=== PATIENT | female | born 1975 | race African-American/Black ===

== ENCOUNTER 2023-04-28 23:28 | Emergency (ER) | payer MEDICAID ==
[~2023-04-28] VITALS: Ht 170.2 cm; Wt 86.0 kg
[2023-04-28 23:36] VITALS: O2SAT 97
[2023-04-28] MEDS ORDERED: ONDANSETRON HCL 4MG/2ML INJ IV STA (23:39)
[2023-04-28] MEDS ORDERED: SODIUM CHLORIDE 0.9% 1,000 ML IV ONE (23:45)
[2023-04-28 23:51] VITALS: TEMP 98.1
[2023-04-29 00:01] LABS: BASOPHILS % 1.2 % (0.0-2.0); EOSINOPHILS % 2.8 % (0.0-5.0); HEMATOCRIT. 24.5 % (36.0-48.0); HEMOGLOBIN. 7.3 g/dL (12.0-16.0); LYMPHOCYTES % 31.3 % (20.0-50.0); MEAN CORPUSCULAR HEMOGLOBIN 19.4 pg (28.0-32.0); MEAN CORPUSCULAR HGB CONC 29.6 g/dL (31.0-37.0); MEAN CORPUSCULAR VOLUME 65.4 fL (81.0-99.0); NEUTROPHILS % 58.7 % (40.0-76.0); PLATELET 571 x1000/uL (130-400); RED BLOOD CELL COUNT 3.75 mill/uL (4.2-5.4)
[2023-04-29 00:13] LABS: CHLORIDE 111 mEq/L (98-107); INDEX HEMOLYSI 1 (1-3); INDEX ICTERIC 1 (1-4); INDEX LIPEMIC 1 (1-3); POTASSIUM 3.1 mEq/L (3.5-5.1); SODIUM 142 mEq/L (136-145)
[2023-04-29 00:14] LABS: ALBUMIN 3.5 g/dL (3.4-5.0); CALCIUM 8.3 mg/dL (8.5-10.1); CARBON DIOXIDE 19 mEq/L (21-32); UREA NITROGEN BLOOD 15 mg/dL (7-21)
[2023-04-29 00:21] LABS: ACETAMINOPHEN 2 ug/mL (10-30); ALANINE AMINOTRANSFERASE 14 IU/L (13-61); ASPARTATE AMINOTRANSFERASE 7 IU/L (15-37); BILIRUBIN TOTAL 0.3 mg/dL (0.1-1.0); ETHANOL BLOOD 104 mg/dL (<10); GLUCOSE 120 mg/dL (70-105); PROTEIN TOTAL 6.8 g/dL (6.0-8.3)
[2023-04-29 00:30] LABS: ADD RBC MORPHOLOGY YES; DIFFERENTIAL COMMENT 1
[2023-04-29 00:57] LABS: HCG SCREEN NEGATIVE
[2023-04-29] MEDS ORDERED: POTASSIUM CHLORIDE 20MEQ/PACKET PO NR (01:15)
[2023-04-29 02:00] LABS: TROPONIN I HIGH SENSITIVITY 16 ng/L (<54)
[2023-04-29 02:15] LABS: CLARITY URINE CLOUDY (CLEAR); COLOR URINE YELLOW (YELLOW); GLUCOSE URINE NEGATIVE (NEGATIVE); KETONES URINE TRACE (NEGATIVE); LEUKOCYTE ESTERASE URINE 1+ (NEGATIVE); NITRITE URINE NEGATIVE (NEGATIVE); OCCULT BLOOD URINE 3+ (NEGATIVE); PH URINE 5.5 (4.5-8.0); PROTEIN URINE TRACE (NEGATIVE)
[2023-04-29 02:18] LABS: BACTERIA URINE 1+; YEAST URINE NONE SEEN
[2023-04-29] MEDS ORDERED: THIA250T3 MT (02:26)
[2023-04-29 02:38] LABS: *AMPHETAMINES SCREEN URINE NEGATIVE (NEGATIVE); *BARBITURATES SCREEN URINE NEGATIVE (NEGATIVE); *BENZODIAZEPINES SCREEN URINE NEGATIVE (NEGATIVE); *COCAINE SCREEN URINE NEGATIVE (NEGATIVE); CANNABINOID URINE SCREEN NEGATIVE (NEGATIVE); ECSTASY MDMA SCREEN URINE NEGATIVE (NEGATIVE); PHENCYCLIDINE URINE SCREEN NEGATIVE (NEGATIVE)
[2023-04-29 02:50] VITALS: BP 120/78; PULSE 92; RESP 13
[2023-04-29 03:22] LABS: OPIATES URINE SCREEN PRESUMTIVE POSITIVE (NEGATIVE)
[2023-04-29 03:37] LABS: SQUAMOUS EPITHELIAL CELL URINE 1+ /lpf (RARE/1+)
[2023-04-29 03:38] LABS: RBC URINE 0-2 /hpf (0-2)
[2023-04-29 05:13] LABS: PLATELET ESTIMATE INCREASED
[2023-04-29 05:16] LABS: HYPOCHROMASIA 1+; MICROCYTOSIS 2+
== END 2023-04-29 02:50 | disposition home or self-care (01) ==
LOC: ER 23:28
DX: F10.129 Alcohol abuse with intoxication, unspecified (principal); I10 Essential (primary) hypertension; D64.9 Anemia, unspecified; Y90.5 Blood alcohol level of 100-119 mg/100 ml
CPT/HCPCS: 80053; 80307; 80329; 80320; 84703; 85025; 84484; 36415; 93005; 99284; 80305; 81003; 96361; 96374; J7030; J2405; G0480

== ENCOUNTER 2023-12-19 16:16 | Emergency (ER) | payer MEDICAID ==
[~2023-12-19] VITALS: Ht 172.7 cm; Wt 82.0 kg
[~2023-12-19 16:16] MED LIST: THIA250T3 MT
[2023-12-19 16:21] VITALS: BP 165/95; PULSE 112; RESP 16; TEMP 98.3; O2SAT 100
== END 2023-12-19 17:35 | disposition left against medical advice (07) ==
LOC: ER 16:28
DX: R55 Syncope and collapse (principal); Z88.0 Allergy status to penicillin; Z88.6 Allergy status to analgesic agent
CPT/HCPCS: 93005; 99283

== ENCOUNTER 2025-01-09 05:55 | Emergency (ER) | payer MEDICAID, OTHER ==
[~2025-01-09] VITALS: Ht 170.2 cm; Wt 100.0 kg
[2025-01-09 05:57] VITALS: TEMP 36.6; O2SAT 98
[2025-01-09] MEDS ORDERED: HYDR-4001 MT (06:55)
[2025-01-09] MEDS ORDERED: KETOROLAC 30MG/ML VIAL IM ONE (07:00)
[2025-01-09] MEDS: HYDROCODONE/ACETAMINOPHEN 5/325MG TABLET PO ONE (07:30)
[2025-01-09 07:41] VITALS: BP 141/92; PULSE 79; RESP 15; O2SAT 100
== END 2025-01-09 07:59 | disposition home or self-care (01) ==
LOC: ER 05:55
DX: G89.29 Other chronic pain (principal); M25.561 Pain in right knee; F41.9 Anxiety disorder, unspecified; F32.A Depression, unspecified; Z88.6 Allergy status to analgesic agent; Z88.0 Allergy status to penicillin
CPT/HCPCS: 73562; 99283

== ENCOUNTER 2025-07-09 11:26 | Inpatient (IN) | payer MEDICAID ==
[~2025-07-09] VITALS: Ht 172.7 cm; Wt 108.9 kg
[~2025-07-09 11:26] MED LIST changes: +HYDR-4001 MT
[2025-07-09 11:31] VITALS: O2SAT 98
[2025-07-09 12:04] LABS: BASOPHILS % 1.1 % (0.0-2.0); EOSINOPHILS % 0.6 % (0.0-5.0); LYMPHOCYTES % 11.1 % (20.0-50.0); MEAN PLATELET VOLUME 6.4 fl (7.4-10.4); MONOCYTES % 5.9 % (2.0-8.0); NEUTROPHILS % 81.3 % (40.0-76.0); PLATELET 931 x1000/uL (130-400); RED BLOOD CELL COUNT 2.44 mill/uL (4.2-5.4); RED CELL DISTRIBUTION WIDTH 21.1 % (11.6-14.6)
[2025-07-09 12:14] LABS: HEMATOCRIT. 19.1 % (36.0-48.0); HEMOGLOBIN. 5.5 g/dL (12.0-16.0)
[2025-07-09 12:18] LABS: CREATININE 1.1 mg/dL (0.6-1.0); UREA NITROGEN BLOOD 14 mg/dL (9-23)
[2025-07-09 12:19] LABS: PROTEIN TOTAL 6.5 g/dL (6.0-8.3)
[2025-07-09 12:20] LABS: ASPARTATE AMINOTRANSFERASE 8 IU/L (<34); BILIRUBIN DIRECT < 0.1 mg/dL (<=3.0); BILIRUBIN TOTAL 0.3 mg/dL (0.1-1.0)
[2025-07-09] MEDS: SODIUM CHLORIDE 0.9% 1,000 ML IV ONE (12:22)
[2025-07-09] MEDS: ONDANSETRON HCL 4MG/2ML INJ IV ONE ×2 (12:22→15:49)
[2025-07-09] MEDS: ACETAMINOPHEN 1000MG/100ML 100 ML IV ONE (12:22)
[2025-07-09 12:25] LABS: HCG SCREEN NEGATIVE
[2025-07-09] MEDS: CEFTRIAXONE 2GM/50ML 50 ML IV ONE (15:30)
[2025-07-09] MEDS: SODIUM CHLORIDE 0.9% (SEPSIS BOLUS) IV ONE (15:49)
[2025-07-09] MEDS: MORPHINE SULFATE 4 MG/ML INJ (FOR IV/IM USE) IM ONE (15:49)
[2025-07-09] MEDS: METRONIDAZOLE 500 MG PREMIX 100 ML IV ONE (15:50)
[2025-07-09] MEDS ORDERED: BUPIVACAINE HCL/PF 0.5% (5MG/ML) 10ML ONE (17:06)
[2025-07-09] MEDS ORDERED: DEXT 5%/0.45% NACL KCL 20MEQ/L 1,000 ML IV SCH (18:00)
[2025-07-09] MEDS ORDERED: ONDANSETRON HCL 4MG/2ML INJ IV PRN ×2 (18:15→19:00)
[2025-07-09] MEDS ORDERED: SEVOFLURANE 250 ML LIQUID INH ONE (18:35)
[2025-07-09] MEDS ORDERED: LABETALOL 5MG/ML 4ML INJ IV PRN (19:00)
[2025-07-09] MEDS ORDERED: HYDROMORPHONE HCL/PF 1MG/ML INJ IV PRN (19:00)
[2025-07-09] MEDS: ACETAMINOPHEN 1000MG/100ML 100 ML IV NR (19:50)
[2025-07-09 20:15] LABS: HEMATOCRIT. 28.7 % (36.0-48.0); HEMOGLOBIN. 9.1 g/dL (12.0-16.0); MEAN PLATELET VOLUME 6.3 fl (7.4-10.4); PLATELET 621 x1000/uL (130-400); RED BLOOD CELL COUNT 3.41 mill/uL (4.2-5.4); RED CELL DISTRIBUTION WIDTH 21.4 % (11.6-14.6)
[2025-07-09] MEDS: HYDROMORPHONE HCL/PF 1MG/ML INJ IV PRN (20:16)
[2025-07-09 20:50] LABS: BAND% 1.0 % (1.0-6.0); LYMPHOCYTES % MANUAL 6.0 % (20.0-60.0); MONOCYTES % MANUAL 7.0 % (2.0-8.0); NEUTROPHILS % MANUAL 86.0 % (45.0-75.0)
[2025-07-09 20:51] LABS: PLATELET ESTIMATE MARKEDLY INCREASED
[2025-07-09] MEDS: FAMOTIDINE 20MG/2ML VIAL IV SCH (21:00)
[2025-07-09 22:55] VITALS: BP 128/84; PULSE 70; RESP 20; TEMP 36.3068
[2025-07-09 23:09] LABS: CLARITY URINE CLEAR (CLEAR); COLOR URINE YELLOW (YELLOW); GLUCOSE URINE 2+ (NEGATIVE); KETONES URINE NEGATIVE (NEGATIVE); LEUKOCYTE ESTERASE URINE NEGATIVE (NEGATIVE); NITRITE URINE NEGATIVE (NEGATIVE); OCCULT BLOOD URINE 1+ (NEGATIVE); PH URINE 5.5 (4.5-8.0); PROTEIN URINE TRACE (NEGATIVE); SPECIFIC GRAVITY URINE 1.022 (1.005-1.030); UROBILINOGEN URINE 0.2 E.U./dL (0.2-1.0)
[2025-07-09 23:37] LABS: BACTERIA URINE TRACE; SQUAMOUS EPITHELIAL CELL URINE 1+ /lpf (RARE/1+)
[2025-07-10] VITALS (7 sets, daily range): BP systolic 119–158; BP diastolic 75–104; PULSE 96–113; RESP 18–20; TEMP 36.3–36.9; O2SAT 95–99
[2025-07-10] MEDS: MORPHINE SULFATE 4 MG/ML INJ (FOR IV/IM USE) IV PRN (00:35)
[2025-07-10] MEDS: DEXT 5%/0.45% NACL KCL 20MEQ/L 1,000 ML IV SCH (03:07)
[2025-07-10] MEDS ORDERED: ACETAMINOPHEN 325MG TABLET PO PRN (10:00)
[2025-07-10] MEDS ORDERED: ONDANSETRON HCL 4MG/2ML INJ IV PRN (10:00)
[2025-07-10] MEDS: METRONIDAZOLE 500 MG PREMIX 100 ML IV SCH (10:34)
[2025-07-10] MEDS: CEFTRIAXONE 1GM/50ML 50 ML IV SCH (15:17)
[2025-07-10] MEDS: MORPHINE SULFATE 2 MG/ML INJ (NOT FOR IM USE) IV PRN (22:00)
[2025-07-11] VITALS (7 sets, daily range): BP systolic 119–151; BP diastolic 87–96; PULSE 102–115; RESP 18–20; TEMP 35.8–36.8; O2SAT 95–97
[2025-07-11] MEDS: GUAIFENESIN 200MG/10ML SUGAR FREE UDC PO PRN (00:39)
[2025-07-11] MEDS ORDERED: HYDROMORPHONE HCL/PF 2MG/ML INJ IV PRN (08:45)
[2025-07-11] MEDS ORDERED: PANTOPRAZOLE SODIUM 40 MG/VIAL IV SCH (09:00)
[2025-07-11] MEDS ORDERED: NALOXONE HCL 0.4MG/ML VIAL IV PRN (09:00)
[2025-07-11] MEDS: THIAMINE HCL 100MG TABLET PO SCH (09:00)
[2025-07-11 09:03] LABS: HEMATOCRIT. 24.5 % (36.0-48.0); HEMOGLOBIN. 8.2 g/dL (12.0-16.0); MEAN PLATELET VOLUME 6.4 fl (7.4-10.4); PLATELET 768 x1000/uL (130-400); RED BLOOD CELL COUNT 3.06 mill/uL (4.2-5.4); RED CELL DISTRIBUTION WIDTH 20.7 % (11.6-14.6)
[2025-07-11 09:19] LABS: CREATININE 0.9 mg/dL (0.6-1.0)
[2025-07-11 09:21] LABS: UREA NITROGEN BLOOD 9 mg/dL (9-23)
[2025-07-11] MEDS: HYDROMORPHONE HCL/PF 2MG/ML INJ IV PRN ×2 (09:21→13:09)
[2025-07-11] MEDS: CEFTRIAXONE 1GM/50ML 50 ML IV SCH (14:19)
[2025-07-11] MEDS: VANCOMYCIN 2GM PMX (XELLIA) 400 ML IV SCH (15:33)
[2025-07-11 19:59] LABS: EOSINOPHILS % MANUAL 4.0 % (0.0-5.0); LYMPHOCYTES % MANUAL 5.0 % (20.0-60.0); MONOCYTES % MANUAL 3.0 % (2.0-8.0); NEUTROPHILS % MANUAL 88.0 % (45.0-75.0); PLATELET ESTIMATE INCREASED
[2025-07-12] VITALS: BP 132/90; PULSE 108; RESP 20; TEMP 36.2; O2SAT 100
[2025-07-12] MEDS: VANCOMYCIN 1G PREMIX 200 ML IV SCH (01:00)
[2025-07-12 04:00] VITALS: BP 139/97; PULSE 109; RESP 20; TEMP 35.8; O2SAT 95
[2025-07-12 08:00] VITALS: BP 139/86; PULSE 103; RESP 18; TEMP 36.2; O2SAT 97
[2025-07-12] MEDS ORDERED: HYDROMORPHONE HCL/PF 2MG/ML INJ IV PRN (08:45)
[2025-07-12] MEDS: HYDROMORPHONE HCL/PF 2MG/ML INJ IV PRN (09:05)
[2025-07-12 12:00] VITALS: BP 141/99; PULSE 103; RESP 19; TEMP 36.5; O2SAT 97
[2025-07-12 13:13] LABS: BASOPHILS % 0.5 % (0.0-2.0); EOSINOPHILS % 6.4 % (0.0-5.0); HEMATOCRIT. 25.6 % (36.0-48.0); HEMOGLOBIN. 8.4 g/dL (12.0-16.0); LYMPHOCYTES % 11.3 % (20.0-50.0); MEAN PLATELET VOLUME 6.3 fl (7.4-10.4); MONOCYTES % 7.2 % (2.0-8.0); NEUTROPHILS % 74.6 % (40.0-76.0); PLATELET 835 x1000/uL (130-400); RED BLOOD CELL COUNT 3.14 mill/uL (4.2-5.4); RED CELL DISTRIBUTION WIDTH 20.9 % (11.6-14.6)
[2025-07-12 13:26] LABS: CREATININE 0.7 mg/dL (0.6-1.0); UREA NITROGEN BLOOD 9 mg/dL (9-23)
[2025-07-12 16:00] VITALS: BP 142/100; PULSE 111; RESP 18; TEMP 36.6; O2SAT 97
[2025-07-12] MEDS: NICOTINE 14MG PATCH TD SCH (16:52)
[2025-07-12] MEDS: MICAFUNGIN 100 MG in SODIUM CHLORIDE 0.9% 100 ML IV SCH (16:52)
[2025-07-12 20:00] VITALS: BP 122/60; PULSE 107; RESP 18; TEMP 36.3; O2SAT 99
[2025-07-12 22:59] LABS: BASOPHILS % 0.2 % (0.0-2.0); EOSINOPHILS % 5.5 % (0.0-5.0); LYMPHOCYTES % 7.6 % (20.0-50.0); MEAN PLATELET VOLUME 6.4 fl (7.4-10.4); MONOCYTES % 8.8 % (2.0-8.0); NEUTROPHILS % 77.9 % (40.0-76.0); PLATELET 781 x1000/uL (130-400); RED BLOOD CELL COUNT 2.64 mill/uL (4.2-5.4); RED CELL DISTRIBUTION WIDTH 21.1 % (11.6-14.6)
[2025-07-12 23:04] LABS: CREATININE 0.7 mg/dL (0.6-1.0); UREA NITROGEN BLOOD 9 mg/dL (9-23)
[2025-07-12 23:08] LABS: HEMATOCRIT. 21.3 % (36.0-48.0); HEMOGLOBIN. 6.8 g/dL (12.0-16.0)
[2025-07-13] VITALS (10 sets, daily range): BP systolic 122–158; BP diastolic 68–90; PULSE 62–105; RESP 18–20; TEMP 36.114–37.7; O2SAT 97–100
[2025-07-13 06:25] LABS: BASOPHILS % 1.1 % (0.0-2.0); EOSINOPHILS % 5.1 % (0.0-5.0); LYMPHOCYTES % 18.2 % (20.0-50.0); MEAN PLATELET VOLUME 6.4 fl (7.4-10.4); MONOCYTES % 7.5 % (2.0-8.0); NEUTROPHILS % 68.1 % (40.0-76.0); PLATELET 748 x1000/uL (130-400); RED BLOOD CELL COUNT 2.54 mill/uL (4.2-5.4); RED CELL DISTRIBUTION WIDTH 20.9 % (11.6-14.6)
[2025-07-13 06:28] LABS: CREATININE 0.8 mg/dL (0.6-1.0); UREA NITROGEN BLOOD 12 mg/dL (9-23)
[2025-07-13 06:48] LABS: HEMATOCRIT. 20.7 % (36.0-48.0); HEMOGLOBIN. 6.7 g/dL (12.0-16.0)
[2025-07-13] MEDS: KCL 20MEQ/100ML PREMIX 100 ML IV NR (11:30)
[2025-07-13] MEDS: MORPHINE SULFATE 4 MG/ML INJ (FOR IV/IM USE) IV PRN (11:30)
[2025-07-14] VITALS: BP 133/96; PULSE 107; RESP 17; TEMP 36.2; O2SAT 100
[2025-07-14 04:00] VITALS: BP 111/63; PULSE 96; RESP 20; TEMP 36.5; O2SAT 100
[2025-07-14 08:00] VITALS: BP 116/78; PULSE 90; RESP 18; TEMP 36.7; O2SAT 98
[2025-07-14 08:25] LABS: CREATININE 0.7 mg/dL (0.6-1.0); UREA NITROGEN BLOOD 11 mg/dL (9-23)
[2025-07-14 08:26] LABS: BASOPHILS % 0.3 % (0.0-2.0); EOSINOPHILS % 4.8 % (0.0-5.0); HEMATOCRIT. 22.4 % (36.0-48.0); HEMOGLOBIN. 7.4 g/dL (12.0-16.0); LYMPHOCYTES % 13.9 % (20.0-50.0); MEAN PLATELET VOLUME 6.1 fl (7.4-10.4); MONOCYTES % 9.7 % (2.0-8.0); NEUTROPHILS % 71.3 % (40.0-76.0); PLATELET 781 x1000/uL (130-400); RED BLOOD CELL COUNT 2.70 mill/uL (4.2-5.4); RED CELL DISTRIBUTION WIDTH 20.1 % (11.6-14.6)
[2025-07-14] MEDS: POTASSIUM CHLORIDE 20MEQ TABLET SR PO NR (10:52)
[2025-07-14] MEDS: DOCUSATE SODIUM 100MG CAPSULE PO PRN (10:53)
[2025-07-14] MEDS: HYDROCODONE/ACETAMINOPHEN 5/325MG TABLET PO PRN (10:53)
[2025-07-14 12:00] VITALS: BP 128/80; PULSE 90; RESP 18; TEMP 36.7; O2SAT 98
[2025-07-14 16:00] VITALS: BP 126/72; PULSE 84; RESP 18; TEMP 36.7; O2SAT 99
[2025-07-14 20:00] VITALS: BP 114/70; PULSE 98; RESP 21; TEMP 36.3; O2SAT 99
[2025-07-15] VITALS (9 sets, daily range): BP systolic 121–134; BP diastolic 67–81; PULSE 86–99; RESP 16–20; TEMP 36.2–36.83628; O2SAT 98–100
[2025-07-15 06:27] LABS: BASOPHILS % 0.3 % (0.0-2.0); EOSINOPHILS % 4.7 % (0.0-5.0); LYMPHOCYTES % 14.9 % (20.0-50.0); MEAN PLATELET VOLUME 6.3 fl (7.4-10.4); MONOCYTES % 8.6 % (2.0-8.0); NEUTROPHILS % 71.5 % (40.0-76.0); PLATELET 760 x1000/uL (130-400); RED BLOOD CELL COUNT 2.32 mill/uL (4.2-5.4); RED CELL DISTRIBUTION WIDTH 20.4 % (11.6-14.6)
[2025-07-15 06:35] LABS: CREATININE 0.7 mg/dL (0.6-1.0); UREA NITROGEN BLOOD < 5 mg/dL (9-23)
[2025-07-15 06:40] LABS: HEMATOCRIT. 19.5 % (36.0-48.0); HEMOGLOBIN. 6.4 g/dL (12.0-16.0)
[2025-07-15] MEDS: METRONIDAZOLE 500 MG PREMIX 100 ML IV SCH (14:00)
[2025-07-15] MEDS: CEFTRIAXONE 2GM/50ML 50 ML IV SCH (15:00)
[2025-07-16] VITALS: BP 126/80; PULSE 92; RESP 20; TEMP 36.6; O2SAT 96
[2025-07-16 04:00] VITALS: BP 40/92; PULSE 90; RESP 20; TEMP 36.4; O2SAT 100
[2025-07-16 08:00] VITALS: BP 132/68; PULSE 85; RESP 18; TEMP 36.3; O2SAT 96
[2025-07-16] MEDS: MULTIVITAMINS,THER W-MINERALS TABLET PO SCH (08:59)
[2025-07-16 09:06] LABS: BASOPHILS % 0.5 % (0.0-2.0); EOSINOPHILS % 4.6 % (0.0-5.0); HEMATOCRIT. 26.8 % (36.0-48.0); HEMOGLOBIN. 8.5 g/dL (12.0-16.0); LYMPHOCYTES % 14.6 % (20.0-50.0); MEAN PLATELET VOLUME 6.5 fl (7.4-10.4); MONOCYTES % 8.9 % (2.0-8.0); NEUTROPHILS % 71.4 % (40.0-76.0); PLATELET 809 x1000/uL (130-400); RED BLOOD CELL COUNT 3.13 mill/uL (4.2-5.4); RED CELL DISTRIBUTION WIDTH 19.5 % (11.6-14.6)
[2025-07-16 09:19] LABS: CREATININE 0.8 mg/dL (0.6-1.0); UREA NITROGEN BLOOD 5 mg/dL (9-23)
[2025-07-16 10:14] VITALS: BP 132/68; PULSE 85; RESP 18; TEMP 97.4
[2025-07-16 12:00] VITALS: BP 149/93; PULSE 85; RESP 18; TEMP 36.3; O2SAT 98
[2025-07-16 16:00] VITALS: BP 138/76; PULSE 87; RESP 17; TEMP 36.3; O2SAT 98
[2025-07-21] MEDS ORDERED: CEPH500T MT (10:27)
== END 2025-07-16 16:15 | disposition home or self-care (01) | DRG 710 ==
LOC: ER 12:32 → 6EST 13:12 → EDBEDREQTM 13:15 → EDBEDREQSVC 13:15 → EDBEDREQ 13:15 → EDBEDREQSVC 15:25
PROVIDERS: ADMIT Internal Medicine; ATTEND Internal Medicine
PROC: 0DQ70ZZ Repair Stomach, Pylorus, Open Approach (ICD-10-PCS; principal; 2025-07-09)
PROC: 30233N1 Transfusion of Nonautologous Red Blood Cells into Peripheral Vein, Percutaneous Approach (ICD-10-PCS; 2025-07-09)
DX: A41.9 Sepsis, unspecified organism (principal); J96.01 Acute respiratory failure with hypoxia; K25.5 Chronic or unspecified gastric ulcer with perforation; E87.20 Acidosis, unspecified; B37.9 Candidiasis, unspecified; N17.9 Acute kidney failure, unspecified; B95.4 Other streptococcus as the cause of diseases classified elsewhere; D50.9 Iron deficiency anemia, unspecified; F32.A Depression, unspecified; F41.9 Anxiety disorder, unspecified; K57.30 Diverticulosis of large intestine without perforation or abscess without bleeding; D25.9 Leiomyoma of uterus, unspecified; Z88.0 Allergy status to penicillin; Z88.6 Allergy status to analgesic agent
CPT/HCPCS: 36415; 71045; 74176; 80048; 80076; 80202; 81003; 83605; 84145; 84703; 85014; 85018; 85025; 86850; 86900; 86920; 87070; 87075; 87077; 87106; 93005; 93970; 99291; A4606; A4615; J0665; J0696; J1171; J1308; J2248; J2270; J2405; J3373; J3480; J3490; J7030; J7050; J7120; P9016; J0131